=== PATIENT | male | born 1965 | race African-American/Black ===

== ENCOUNTER 2016-08-28 07:35 | Day surgery (SDC) | payer OTHER ==
[~2016-08-28] VITALS: Ht 180.3 cm; Wt 86.6 kg
[2016-08-28 08:41] VITALS: BP 125/78; Ht 180.3 cm; Wt 86.6 kg
--- NOTE | 2016-08-28 09:33 | NUR ---
NO COUNTS R/T PROCEDURE
[2016-08-28] MEDS ORDERED: VALIUM5 MG PO (10:27)
[2016-08-28] MEDS ORDERED: MIRALAX17 GM PO (10:28)
[2016-08-28] MEDS ORDERED: HYDROCODON-ACE1 EAC7 PO (10:28)
--- NOTE | 2016-08-28 22:01 | OP ---
PATIENT NAME: TORIBIO DONALD MEDICAL RECORD: [id number] :69 LOCATION:D.OPS ADMISSION DATE: SURGEON: STEFF CHAUDHARY MD DATE OF OPERATION: 08/28/2016 SURGEON: Steff Chaudhary MD PREOPERATIVE DIAGNOSES: 1. Bleeding internal hemorrhoids. 2. Screening for malignant neoplasm of the colon. POSTOPERATIVE DIAGNOSES: 1. Bleeding internal hemorrhoids. 2. Screening for malignant neoplasm of the colon. PROCEDURE PERFORMED: 1. Colonoscopy. 2. Internal hemorrhoid banding. ANESTHESIA: General. COMPLICATIONS: None. SPECIMENS: None. ESTIMATED BLOOD LOSS: Minimal. Case was contaminated. OPERATIVE COURSE: After consent was obtained, the patient was taken to the operating room and placed in the supine position on the operating table. Next, general anesthesia was given via endotracheal intubation. The timeout was taken to confirm the correct patient and procedure. At this time, the colonoscopy was performed. The colonoscope was inserted through the anus. The rectum was insufflated. The scope was advanced under direct endoscopic vision into the cecum. The ileocecal valve was identified and intubated. The ileocecal valve was pictured. Approximately 12 minutes was spent on withdrawal of the scope. There were no polyps identified. No evidence of bleeding. There was no diverticulosis. Once the scope was returned to the rectum, the scope was retroflexed. Internal hemorrhoids were again identified. The scope was advanced back into the ascending colon. The colon was desufflated upon withdrawal of the scope. Next, the perineum was prepped and draped in typical sterile fashion. A 30 cc of local anesthetic were injected circumferentially on the anus for local anesthesia. The anus was serially dilated using the [place] retractors. Bands were placed on all 3 internal hemorrhoid columns, 1 band was placed in left lateral column, 1 band on the right posterior column as well as 1 band on the right anterior column. Once all [address], the rectum was packed with Gelfoam soaked in [place]. At the end of the case, all needle and instrument counts were correct. No complications occurred. The patient was extubated and transferred to the PACU in stable condition. TRANSINT:[id number] Voice Confirmation ID: [id number] DOCUMENT ID: [id number] OPERATIVE REPORT [id number] TORIBIO DONALD JAMES J MD at 2201 CC: [id number] DICTATION DATE: 08/28/16 1035 CHRONIC DISEASE MANAGER: 08/28/16 1621 [facility] 08/28/16 [id number] [place] [address]
== END 2016-08-28 13:10 | disposition home or self-care (01) ==
LOC: D.OPS 07:35 → D.PAN 09:00 → D.OPS 09:15
DX: Z12.11 Encounter for screening for malignant neoplasm of colon (principal); K64.8 Other hemorrhoids

== ENCOUNTER 2016-11-15 21:13 | Emergency (ER) | payer OTHER ==
[2016-08-28 08:41] VITALS: BMI 26.7
[~2016-11-15 21:13] MED LIST: HYDROCODON-ACE1 EAC7 PO; MIRALAX17 GM PO; VALIUM5 MG PO
== END 2016-11-15 23:17 | disposition home or self-care (01) ==
LOC: D.ER 21:13
DX: S43.402A Unspecified sprain of left shoulder joint, initial encounter (principal); V29.9XXA Motorcycle rider (driver) (passenger) injured in unspecified traffic accident, initial encounter; Y93.89 Activity, other specified; Y92.89 Other specified places as the place of occurrence of the external cause; F17.200 Nicotine dependence, unspecified, uncomplicated